=== PATIENT | female | born 1965 | race Hispanic/Latino ===

== ENCOUNTER 2018-07-17 18:23 | Emergency (ER) | payer MEDICARE ==
--- NOTE | 2018-07-17 18:37 | Event Note ---
ED Screening Note ED Screening Note: pt states that she is on vacation states she does not have her insulin states she is two and a half hours from home states she takes novolog on a sliding scale also takes toujeo 15 units in the morning and 10 units at night last took her insulin this morning states she has had increased thirst and urination states she took her blood glucose and it was >500 ate at [facility] PMHx HLD, hypothyroid This initial assessment/diagnostic orders/clinical plan/treatment(s) is/are subject to change based on patients health status, clinical progression and re- assessment by fellow clinical providers in the ED. Further treatment and workup at subsequent clinical providers discretion. Patient/guardian urged not to elope from the ED as their condition may be serious if not clinically assessed and managed. Initial orders include: labs
[2018-07-17 19:55] LABS: Basophils # (Auto) 0.1 K/mm3 (0.0-0.1); Basophils % (Auto) 1.4 % (0.0-1.8); Eosinophils % (Auto) 0.7 % (0.0-4.3); Hematocrit 38.7 % (30.3-42.9); Hemoglobin 13.2 gm/dl (10.1-14.3); Lymphocytes # (Auto) 2.2 K/mm3 (1.2-5.4); Mean Corpuscular HGB Conc 34 % (30-34); Mean Corpuscular Volume 92 fl (79-97); Monocytes # (Auto) 0.4 K/mm3 (0.0-0.8); Monocytes % (Auto) 5.7 % (0.0-7.3); Platelet Count 255 K/mm3 (140-440); Red Blood Count 4.21 M/mm3 (3.65-5.03); Red Cell Distribution Width 13.6 % (13.2-15.2)
[2018-07-17 20:12] LABS: BUN/Creatinine Ratio 18; Blood Urea Nitrogen 14 mg/dL (7-17); Hemolysis Index 5
[2018-07-17] MEDS ORDERED: NACL 0.9% 1000 ML 1,000 ML IV ONE ×2 (20:46)
[2018-07-17] MEDS ORDERED: HumuLIN R IV ONE (20:50)
[2018-07-17 21:33] LABS: Bilirubin,Urine NEG (Negative); Blood,Urine NEG (Negative); Color,Urine Colorless (Yellow); Protein,Urine <15 mg/dL mg/dL (Negative); Urobilinogen,Urine < 2.0 mg/dL (<2.0); WBC,Urine < 1.0 /HPF (0.0-6.0)
--- NOTE | 2018-07-17 22:58 | Emergency Department Report ---
ED General Adult HPI - General Chief complaint: Hyperglycemia Stated complaint: DIABETIC/HIGH SUGAR Time Seen by Provider: 07/17/18 18:34 Source: patient Mode of arrival: Ambulatory Limitations: No Limitations - History of Present Illness Initial comments: 52 yo F w/ hx of diabetes presents to ED with elevated glucose. Pt states she is visiting for the night from [facility] and forgot her insulin. Denies nausea, vomiting. States will be returning home tomorrow. -: This evening Consistency: constant Associated Symptoms: denies: chest pain, cough, headaches, nausea/vomiting - Related Data Allergies Allergy/AdvReac Type Severity Reaction Status Date / Time SULFA Allergy Rash Uncoded 07/17/18 18:37 ED Review of Systems ROS: Stated complaint: DIABETIC/HIGH SUGAR Other details as noted in HPI Comment: All other systems reviewed and negative Constitutional: denies: chills, fever Gastrointestinal: denies: abdominal pain, nausea, vomiting ED Past Medical Hx - Past Medical History Hx Diabetes: Yes Additional medical history: BACK PAIN - Surgical History Additional Surgical History: HYSTO BACK - Social History Smoking Status: Never Smoker Substance Use Type: None ED Physical Exam - General Limitations: No Limitations General appearance: alert, in no apparent distress - Head Head exam: Present: atraumatic, normocephalic - Eye Eye exam: Present: normal appearance - ENT ENT exam: Present: mucous membranes moist - Neck Neck exam: Present: normal inspection - Respiratory Respiratory exam: Present: normal lung sounds bilaterally. Absent: respiratory distress - Cardiovascular Cardiovascular Exam: Present: regular rate, normal rhythm - GI/Abdominal GI/Abdominal exam: Present: soft. Absent: distended, tenderness - Extremities Exam Extremities exam: Present: normal inspection - Neurological Exam Neurological exam: Present: alert, oriented X3 - Psychiatric Psychiatric exam: Present: normal affect, normal mood - Skin Skin exam: Present: warm, dry, intact, normal color ED Course Vital Signs 07/17/18 07/17/18 07/17/18 18:34 20:00 20:30 Temperature 98.1 F Pulse Rate 61 62 Respiratory 18 11 L 18 Rate Blood Pressure 136/84 O2 Sat by Pulse 98 90 Oximetry 07/17/18 07/17/18 07/17/18 20:31 21:24 21:31 Temperature Pulse Rate 59 L Respiratory 19 13 12 Rate Blood Pressure 132/70 132/70 132/70 O2 Sat by Pulse 98 98 98 Oximetry 07/17/18 07/17/18 07/17/18 22:01 22:31 23:01 Temperature Pulse Rate Respiratory 21 12 12 Rate Blood Pressure 107/56 107/56 100/61 O2 Sat by Pulse 98 100 99 Oximetry ED Medical Decision Making - Lab Data Result diagrams: 07/17/18 19:31 07/17/18 19:31 - Medical Decision Making Glucose 614. No evidence of DKA. IV fluids and insulin given. Improved to 299. Will discharge at this time. - Differential Diagnosis hyperglycemia, DKA Critical care attestation.: If time is entered above; I have spent that time in minutes in the direct care of this critically ill patient, excluding procedure time. ED Disposition Clinical Impression: Hyperglycemia Disposition: DC-01 TO HOME OR SELFCARE Is pt being admited?: No Condition: Stable Instructions: Diabetic Hyperglycemia (ED) Referrals: PRIMARY CARE [Referring] - 3-5 Days Time of Disposition: 22:58
[2018-07-17 23:03] VITALS: BP 100/61
== END 2018-07-17 23:36 | disposition home or self-care (01) ==
LOC: ED 18:23
DX: E11.65 Type 2 diabetes mellitus with hyperglycemia (principal); Z88.2 Allergy status to sulfonamides
CPT/HCPCS: 36415; 80048; 81001; 82962; 85025; 96361; 96374; 99284; J7030; J1815